=== PATIENT | female | born 1960 | race Hispanic/Latino ===

== ENCOUNTER 2024-02-07 09:07 | Outpatient (CLI) | payer MEDICARE ==
[~2024-02-07 09:07] MED LIST: Magnevist 469MG/ML 20 ML VIAL ONE
== END 2024-02-07 09:08 | disposition home or self-care (01) ==
LOC: CSHMRI 09:07
PROVIDERS: ATTEND Psychiatry & Neurology Neurology
DX: G35 Multiple sclerosis (principal); G37.9 Demyelinating disease of central nervous system, unspecified; M47.812 Spondylosis without myelopathy or radiculopathy, cervical region; M48.54XD Collapsed vertebra, not elsewhere classified, thoracic region, subsequent encounter for fracture with routine healing
CPT/HCPCS: 70553; 72156; 72157; 76376; A9579